=== PATIENT | male | born 1980 | race Caucasian/White ===

== ENCOUNTER 2017-04-02 15:33 | Emergency (ER) | payer BC ==
[2017-04-02 16:25] VITALS: BP 134/87
--- NOTE | 2017-04-02 16:31 | EDM.PDOC ---
ED HPI GENERAL MEDICAL PROBLEM - General Stated Complaint: CUT INDEX FINGER ON LT HAND Time Seen by Provider: 04/02/17 16:15 Source of Information: Reports: Patient History Limitations: Reports: No Limitations - History of Present Illness INITIAL COMMENTS - FREE TEXT/NARRATIVE: 36 yo male presents to ED due to finger laceration. He was using a sharp cable wirer and sliced his left index finger. It occurred 2 hours ago. Pain is minimal. He has full rom of all his digits. left index Pain Score (Numeric/FACES): 1 - Related Data Allergies Allergy/AdvReac Type Severity Reaction Status Date / Time No Known Allergies Allergy Verified 04/02/17 16:22 Home Meds: Home Meds Venlafaxine [Effexor] 75 mg PO DAILY 08/27/14 [History] Social & Family History - Tobacco Use Smoking Status *Q: Never Smoker Second Hand Smoke Exposure: No - Alcohol Use Days Per Week of Alcohol Use: 0 - Recreational Drug Use Recreational Drug Use: No ED ROS GENERAL - Review of Systems Review Of Systems: See Below Constitutional: Reports: No Symptoms HEENT: Reports: No Symptoms Respiratory: Reports: No Symptoms Cardiovascular: Reports: No Symptoms Endocrine: Reports: No Symptoms GI/Abdominal: Reports: No Symptoms : Reports: No Symptoms Musculoskeletal: Reports: No Symptoms Skin: Reports: Other (laceration) Neurological: Reports: No Symptoms Psychiatric: Reports: No Symptoms Hematologic/Lymphatic: Reports: No Symptoms Immunologic: Reports: No Symptoms ED EXAM, GENERAL - Physical Exam Exam: See Below Exam Limited By: No Limitations General Appearance: Alert, WD/WN, No Apparent Distress Eye Exam: Bilateral Eye: Normal Inspection Ears: Normal External Exam, Normal Canal, Hearing Grossly Normal Nose: Normal Inspection, Normal Mucosa, No Blood Throat/Mouth: Normal Inspection, Normal Oropharynx, No Airway Compromise Head: Atraumatic, Normocephalic Neck: Normal Inspection, Supple, Non-Tender Respiratory/Chest: No Respiratory Distress, Lungs Clear, Normal Breath Sounds Cardiovascular: Normal Peripheral Pulses, Regular Rate, Rhythm Peripheral Pulses: 2+: Radial (L), Radial (R) GI/Abdominal: Normal Bowel Sounds, Soft, Non-Tender Back Exam: Normal Inspection, Full Range of Motion Extremities: Normal Range of Motion, Normal Capillary Refill Neurological: Alert, Oriented, CN II-XII Intact, Normal Reflexes Psychiatric: Normal Affect, Normal Mood Skin Exam: Other (Left index finger laceration, 5 mm long ) Course - Vital Signs Last Recorded V/S: Last Vital Signs Temp 37.4 C 04/02/17 16:00 Pulse 78 04/02/17 16:00 Resp 18 04/02/17 16:00 BP 134/87 04/02/17 16:00 Pulse Ox - Orders/Labs/Meds Meds: Medications Discontinued Medications Generic Name Dose Route Start Last Admin Trade Name Micah PRN Reason Stop Dose Admin Lidocaine HCl 20 ml 04/02/17 16:34 Xylocaine 1% INJECT 04/02/17 16:35 ONETIME ONE Morphine Sulfate 1 mg 04/02/17 17:22 Morphine IVPUSH 04/02/17 17:23 ONETIME ONE Departure - Departure Time of Disposition: 17:13 Disposition: Home, Self-Care 01 Condition: Good Clinical Impression: Finger laceration - Discharge Information Instructions: Laceration Care, Adult, [id number] Referrals: Manuelito Aaron MD [Primary Care Provider] - 2 Weeks (f/u with Dr. Aaron or any PCP in 7-10 days for suture removal ) Forms: ED Department Discharge Additional Instructions: The following information is given to patients seen in the emergency department who are being discharged to home. This information is to outline your options for follow-up care. We provide all patients seen in our emergency department with a follow-up referral. The need for follow-up, as well as the timing and circumstances, are variable depending upon the specifics of your emergency department visit. If you don't have a primary care physician on staff, we will provide you with a referral. We always advise you to contact your personal physician following an emergency department visit to inform them of the circumstance of the visit and for follow-up with them and/or the need for any referrals to a consulting specialist. The emergency department will also refer you to a specialist when appropriate. This referral assures that you have the opportunity for followup care with a specialist. All of these measure are taken in an effort to provide you with optimal care, which includes your followup. Under all circumstances we always encourage you to contact your private physician who remains a resource for coordinating your care. When calling for followup care, please make the office aware that this follow-up is from your recent emergency room visit. If for any reason you are refused follow-up, please contact the [facility] emergency department at and asked to speak to the emergency department charge nurse. - Problem List Review Problem List Initiated/Reviewed/Updated: Yes - Assessment/Plan Plan: Diagnostics: deferred Therapeutics: deferred Assessment: Left Index Finger Laceration Plan: Laceration Repair - Laceration closed with 4-0 vicryl sutures. discussed risks, benefits and alternatives. consent was obtained. Lidocaine 5 cc used for anesthesia. Less than 5 ml blood loss. No complications. Patient tolerated procedure. He will follow-up with PCP in 7-10 days for suture removal.
[2017-04-02] MEDS ORDERED: Lidocaine 1% 20 ML MDV INJECT ONE (16:34)
[2017-04-02] MEDS ORDERED: Morphine 2 MG/ML Syringe IVPUSH ONE (17:22)
== END 2017-04-02 17:30 | disposition home or self-care (01) ==
LOC: MW.ED 15:33
DX: S61.211A Laceration without foreign body of left index finger without damage to nail, initial encounter (principal); Z79.899 Other long term (current) drug therapy; W26.8XXA Contact with other sharp object(s), not elsewhere classified, initial encounter
CPT/HCPCS: 12001; 99282

== ENCOUNTER 2018-07-15 15:58 | Emergency (ER) | payer OTHER, BC ==
--- NOTE | 2018-07-15 16:32 | EDM.PDOC ---
ED HPI GENERAL MEDICAL PROBLEM - General Chief Complaint: Bite:Animal, Insect Stated Complaint: DOG BITE Time Seen by Provider: 07/15/18 16:29 - History of Present Illness INITIAL COMMENTS - FREE TEXT/NARRATIVE: HISTORY AND PHYSICAL: History of present illness: Patient is a 38-year-old male presents with concern of status post dog bite this was to his left leg that was over his pants he comes in with a minor abrasion his left leg he denies up-to-date tetanus Review of systems: As per history of present illness and below otherwise all systems reviewed and negative. Past medical history: As per history of present illness and as reviewed below otherwise noncontributory. Surgical history: As per history of present illness and as reviewed below otherwise noncontributory. Social history: No reported history of drug or alcohol abuse. Family history: As per history of present illness and as reviewed below otherwise noncontributory. Physical exam: HEENT: Atraumatic, normocephalic, pupils reactive, negative for conjunctival pallor or scleral icterus, mucous membranes moist, throat clear, neck supple, nontender, trachea midline. Lungs: Clear to auscultation, breath sounds equal bilaterally, chest nontender. Heart: S1S2, regular, negative for clicks, rubs, or JVD. Abdomen: Soft, nondistended, nontender. Negative for masses or hepatosplenomegaly. Negative for costovertebral tenderness. Pelvis: Stable nontender. Genitourinary: Deferred. Rectal: Deferred. Extremities: Minor abrasion noted lateral aspect distal left leg. Neuro: Awake, alert, oriented. Cranial nerves II through XII unremarkable. Cerebellum unremarkable. Motor and sensory unremarkable throughout. Exam nonfocal. Diagnostics: None Therapeutics: Tetanus Impression: #1 animal bite/abrasion Definitive disposition and diagnosis as appropriate pending reevaluation and review of above. Left Calf Pain Score (Numeric/FACES): 1 - Related Data Allergies Allergy/AdvReac Type Severity Reaction Status Date / Time No Known Allergies Allergy Verified 07/15/18 16:18 Home Meds: Home Meds Venlafaxine [Effexor] 75 mg PO DAILY 08/27/14 [History] Past Medical History - Past Health History Medical/Surgical History: Denies Medical/Surgical History Psychiatric History: Reports: Depression - Past Surgical History Neurological Surgical History: Reports: Other (See Below) Other Neurological Surgeries/Procedures: Neck Social & Family History - Family History Family Medical History: Noncontributory - Tobacco Use Smoking Status *Q: Current Every Day Smoker Years of Tobacco use: 15 Packs/Tins Daily: 0.5 - Caffeine Use Caffeine Use: Reports: None - Recreational Drug Use Recreational Drug Use: No ED ROS GENERAL - Review of Systems Review Of Systems: ROS reveals no pertinent complaints other than HPI. ED EXAM, ANIMAL BITE - Physical Exam Exam: See Below (See dictation) Course - Vital Signs Last Recorded V/S: Last Vital Signs Temp 37.1 C 07/15/18 16:16 Pulse 81 07/15/18 16:16 Resp 18 07/15/18 16:16 BP 130/72 07/15/18 16:16 Pulse Ox 96 07/15/18 16:16 Departure - Departure Time of Disposition: 16:31 Disposition: Home, Self-Care 01 Condition: Good Clinical Impression: Abrasion, Animal bite - Discharge Information Referrals: PCP,Unknown [Primary Care Provider] - Additional Instructions: The following information is given to patients seen in the emergency department who are being discharged to home. This information is to outline your options for follow-up care. We provide all patients seen in our emergency department with a follow-up referral. The need for follow-up, as well as the timing and circumstances, are variable depending upon the specifics of your emergency department visit. If you don't have a primary care physician on staff, we will provide you with a referral. We always advise you to contact your personal physician following an emergency department visit to inform them of the circumstance of the visit and for follow-up with them and/or the need for any referrals to a consulting specialist. The emergency department will also refer you to a specialist when appropriate. This referral assures that you have the opportunity for followup care with a specialist. All of these measure are taken in an effort to provide you with optimal care, which includes your followup. Under all circumstances we always encourage you to contact your private physician who remains a resource for coordinating your care. When calling for followup care, please make the office aware that this follow-up is from your recent emergency room visit. If for any reason you are refused follow-up, please contact the emergency department at and asked to speak to the emergency department charge nurse. Wound care is discussed follow-up private medical doctor return as needed as discussed
[2018-07-15 18:15] VITALS: BP 132/76
== END 2018-07-15 16:37 | disposition home or self-care (01) ==
LOC: MW.ED 15:58
DX: S80.812A Abrasion, left lower leg, initial encounter (principal); F32.9 Major depressive disorder, single episode, unspecified; F17.210 Nicotine dependence, cigarettes, uncomplicated; W54.0XXA Bitten by dog, initial encounter; Z79.899 Other long term (current) drug therapy
CPT/HCPCS: 99283